=== PATIENT | female | born 1995 | race Caucasian/White ===

== ENCOUNTER 2018-11-28 17:42 | Emergency (ER) | payer OTHER, SELFPAY ==
[2018-11-28 18:08] LABS: Bilirubin Small (Negative); Blood, Urine Large (Negative); Glucose, Urine (Dipstick) Negative (Negative); Leukocyte Small (Negative); Nitrite Negative (Negative); Protein, Urine (Dipstick) > or equal to 300 mg/dL (Neg-Trace); Urobilinogen 0.2 mg/dL (Less than 2)
[2018-11-28] MEDS ORDERED: Sodium Chloride 0.9% 1,000 ML ONE (18:10)
[2018-11-28] MEDS ORDERED: Ondansetron PF 4 MG/2 ML Vial ONE (18:17)
[2018-11-28] MEDS ORDERED: Morphine 4 MG/ML VIAL ONE (18:17)
[2018-11-28 18:24] LABS: Clarity Cloudy (Clear)
[2018-11-28 18:27] LABS: Bacteria/HPF 3+ HPF (None Seen); RBC/HPF 21-50 HPF (0-3); Squamous Epithelial 0-3 HPF (0-3); Transitional Epithelial 0-3 HPF (None Seen); WBC/HPF Greater Than 50 HPF (0-3)
[2018-11-28 18:28] LABS: Trichomonas/HPF 1+ HPF (None Seen); Yeast-Budding 2+ HPF (None Seen)
[2018-11-28 18:31] LABS: #Lymphocytes 1.4 thou/uL (1.20-3.40); #Monocytes 0.8 thou/uL (0.11-0.59); #Neutrophils 12.1 thou/uL (1.40-6.50); %Basophils 0.2 % (0.0-1.0); %Eosinophils 0.1 % (0.0-10.0); %Lymphocytes 9.7 % (21.0-51.0); %Monocytes 5.7 % (0.0-10.0); %Neutrophils 84.3 % (42.0-75.0); Differential Comment SCANNED; Hemoglobin 15.2 g/dL (12.0-16.0); Mean Corpuscular HGB CONC 32.5 g/dL (32.0-36.0); Mean Corpuscular Hemoglobin 28.7 pg (27.0-31.0); Mean Corpuscular Volume 88.2 fL (78.0-98.0); Mean Platelet Volume 8.6 fL (7.4-10.4); Platelet Count 206 thou/uL (130-400); RBC Distribution Width 12.2 % (11.5-14.5); Red Blood Cell (RBC) Count 5.31 mill/uL (4.20-5.40); White Blood Cell (WBC) Count 14.3 thou/uL (4.8-10.8)
[2018-11-28 18:33] LABS: ALT (SGPT) 25 U/L (8-55); AST (SGOT) 19 U/L (5-34); Albumin 4.7 g/dL (3.5-5.0); Alkaline Phosphatase 89 U/L (40-110); Anion Gap 18 mmol/L (10-20); BUN (Urea Nitrogen) 8 mg/dL (7.0-18.7); Bilirubin, Total 0.5 mg/dL (0.2-1.2); Calc. Creatinine Clearance 0 mL/min (70-130); Calcium 9.9 mg/dL (7.8-10.44); Carbon Dioxide 20 mmol/L (22-29); Chloride 105 mmol/L (98-107); Estimated GFR-MDRD Greater than 90; Globulin 2.8 g/dL (2.4-3.5); Glucose 95 mg/dL (70-105); Potassium 3.9 mmol/L (3.5-5.1); Protein, Total 7.5 g/dL (6.0-8.3); Sodium 139 mmol/L (136-145)
[2018-11-28 18:34] LABS: Pregnancy Test - Urine (BHCG) Negative (Negative); Pregu Control Background? CLEAR/WHITE (CLR/WHITE); Pregu Control Bar Appear? YES (CONTROL BAR); Specific Gravity 1.024 (1.002-1.036)
[2018-11-28] MEDS ORDERED: Azithromycin 250 MG TAB ONE (19:10)
[2018-11-28] MEDS ORDERED: Ketorolac Tromethamine 30 MG/ML VIAL ONE (19:10)
[2018-11-28] MEDS ORDERED: Cipro 250 MG TAB ONE (19:10)
[2018-11-28] MEDS ORDERED: cefTRIAXone\\ROCEPHIN 250 MG VIAL ONE (19:10)
[2018-11-28] MEDS ORDERED: Lidocaine 1% w/Epinephrine 1:100K 30 ML VIAL ONE (19:16)
== END 2018-11-28 19:36 | disposition home or self-care (01) ==
LOC: NAV ERS 17:42
DX: N39.0 Urinary tract infection, site not specified (principal); A59.01 Trichomonal vulvovaginitis; F41.9 Anxiety disorder, unspecified; F17.210 Nicotine dependence, cigarettes, uncomplicated
CPT/HCPCS: 80053; 81003; 81015; 81025; 83605; 85025; 96361; 96372; 96374; 96375; J0696; J1885; J2001; J2270; J2405; J7050

== ENCOUNTER 2022-02-02 11:18 | Emergency (ER) | payer MEDICAID, OTHER ==
[2022-02-02 12:06] LABS: Bilirubin Negative (Negative); Blood, Urine Negative (Negative); Clarity Clear (Clear); Glucose, Urine (Dipstick) Negative (Negative); Ketone, Urine Trace mg/dL (Negative); Leukocyte Negative (Negative); Nitrite Negative (Negative); Protein, Urine (Dipstick) Negative (Neg-Trace); Specific Gravity, Urine 1.025 (1.005-1.030); Urobilinogen 0.2 mg/dL (Less than 2); pH, Urine 6.5 (5.0-9.0)
[2022-02-02] MEDS ORDERED: Acetaminophen 500 MG TAB ONE (12:30)
== END 2022-02-02 14:00 | disposition home or self-care (01) ==
LOC: NAV ERS 11:18
DX: O9A.212 Injury, poisoning and certain other consequences of external causes complicating pregnancy, second trimester (principal); S39.012A Strain of muscle, fascia and tendon of lower back, initial encounter; S93.602A Unspecified sprain of left foot, initial encounter; O99.891 Other specified diseases and conditions complicating pregnancy; R10.9 Unspecified abdominal pain; O99.332 Smoking (tobacco) complicating pregnancy, second trimester; F17.210 Nicotine dependence, cigarettes, uncomplicated; Z3A.16 16 weeks gestation of pregnancy; W18.39XA Other fall on same level, initial encounter; Y93.K1 Activity, walking an animal; Y99.0 Civilian activity done for income or pay
CPT/HCPCS: 81003; 87086; 99284

== ENCOUNTER 2023-04-20 00:33 | Emergency (ER) | payer OTHER, SELFPAY ==
[2023-04-20] MEDS ORDERED: traMADol HCl 50 MG TAB ONE (00:57)
[2023-04-20] MEDS ORDERED: Ketorolac Tromethamine 60 MG/2 ML VIAL ONE (00:57)
[2023-04-20] MEDS ORDERED: Clindamycin 150 MG CAP ONE (00:57)
== END 2023-04-20 01:30 | disposition home or self-care (01) ==
LOC: NAV ERS 00:33
DX: K04.7 Periapical abscess without sinus (principal); F17.210 Nicotine dependence, cigarettes, uncomplicated
CPT/HCPCS: 96372; 99282; J1885

== ENCOUNTER 2023-05-18 07:34 | Emergency (ER) | payer SELFPAY ==
[2023-05-18] MEDS ORDERED: Ketorolac Tromethamine 30 MG (1 mL) VIAL ONE (08:32)
[2023-05-18] MEDS ORDERED: Metoclopramide HCl 10 MG (2 mL) VIAL ONE (08:32)
[2023-05-18] MEDS ORDERED: Sodium Chloride 0.9% 1,000 ML ONE (08:33)
[2023-05-18] MEDS ORDERED: Lorazepam 2 MG/ML VIAL ONE (09:05)
== END 2023-05-18 10:08 | disposition home or self-care (01) ==
LOC: NAV ERS 07:34
DX: K02.9 Dental caries, unspecified (principal); G43.909 Migraine, unspecified, not intractable, without status migrainosus; F17.210 Nicotine dependence, cigarettes, uncomplicated
CPT/HCPCS: 96365; 96375; J1885; J2060; J2765; J7050